=== PATIENT | female | born 1975 | race Caucasian/White ===

== ENCOUNTER 2020-01-04 13:48 | Outpatient (CLI) | payer BC ==
--- NOTE | 2020-01-04 15:09 | ULT ---
RIGHT BREAST ULTRASOUND: 01/04/20 HISTORY: Abnormal mammogram. FINDINGS: Correlation is made with mammograms of 12/13/19 and today. Sonographic evaluation of the right inferior outer breast demonstrates cysts at the 8 o'clock positi on. The largest measures 6 mm and corresponds to the mammographic finding. IMPRESSION: BIRADS 2: Benign Finding(s) Routine annual screening mammography (for women over age 40). POS: [facility]
--- NOTE | 2020-01-05 12:02 | MMO ---
Right Breast MAMMO Unilat Diag DDI RT+NA. CLINICAL HISTORY: Patient is 44 years old and is seen for diagnostic exam. VIEWS: The views performed were: right craniocaudal with tomosynthesis; right mediolateral oblique with tomosynthesis; and right mediolateral with tomosynthesis. FILMS COMPARED: The present examination has been compared to prior imaging studies performed on 12/14/2019, and at [facility] on 01/04/2020. This study has been interpreted with the assistance of computer-aided detection. MAMMOGRAM FINDINGS: The breast is heterogeneously dense, which could obscure a lesion on mammography. Additional views were performed. Finding persists and corresponds to a 6 mm cyst at 8:00 on US. There are no suspicious masses, suspicious calcifications, or new areas of architectural distortion. IMPRESSION: THERE IS NO MAMMOGRAPHIC EVIDENCE OF MALIGNANCY. A ROUTINE FOLLOW-UP MAMMOGRAM IN 1 YEAR IS RECOMMENDED. THE RESULTS OF THIS EXAM WERE SENT TO THE PATIENT. ACR BI-RADS Category 2 - Benign finding MAMMOGRAPHY NOTE: 1. A negative mammogram report should not delay a biopsy if a dominant of clinically suspicious mass is present. 2. Approximately 10% to 15% of breast cancers are not detected by mammography. 3. Adenosis and dense breasts may obscure an underlying neoplasm. Reported by: VALERY ZAPATA MD Electonically Signed: [id number]
== END 2020-01-04 13:49 | disposition home or self-care (01) ==
LOC: BICMAMMO 13:48
PROVIDERS: ATTEND Student in an Organized Health Care Education/Training Program
DX: N63.10 Unspecified lump in the right breast, unspecified quadrant (principal)
CPT/HCPCS: G0279